=== PATIENT | female | born 1965 | race Caucasian/White ===

== ENCOUNTER 2017-11-02 15:49 | Emergency (ER) | payer OTHER ==
[~2017-11-02] VITALS: Ht 165.1 cm; Wt 105.1 kg
[~2017-11-02 15:49] MED LIST: ACCUPRIL20 MG PO; ALBUTEROL; ALBUTEROL17 GM IH; ALEVE220 M1 PO; ALPRAZOLAM0.25 MG; ALPRAZOLAM0.25 MG PO; ASPIR 8181 M1 PO; BENICAR40 MG PO; BUTRANS1 EAC1 TD; CALCIUM WITH V PO; CALCIUM500 M4 PO; CENTRUM SILVER1 EACH PO; CLEOCIN300 MG PO; CLONAZEPAM1 MG PO; CYMBALTA; CYMBALTA60 MG; CYMBALTA60 MG PO; Cymbalta PO; DIPHENOXYLATE-1 EAC1 PO; DITROPAN XL5 MG PO; ESTRADIOL; FLAX OIL1000 MG PO; FLEXERIL10 MG PO; GABAPENTIN; GLUCOSAMINE SULFATE; KEFLEX500 MG PO; LISINOPRIL; LOMOTIL TABLET1 EACH; LOMOTIL TABLET1 EACH PO; MACROBID100 MG PO; MACRODANTIN50 M1 PO; MELOXICAM15 MG PO; METAXALONE800 MG PO; MULTI VITAMIN1 EACH PO; OXYBUTYNIN CHLOR5 M1 PO; OXYCODONE HCL10 MG PO; OXYCODONE5 MG PO; PRILOSEC40 MG PO; PROTONIX40 MG PO; PROVENTIL17 GM; RECLAST5 MG/100 M; SEROQUEL100 MG PO; SKELAXIN400 M1 PO; SYMBICORT; SYMBICORT60 INHALAT; SYMBICORT60 INHALAT IH; SYNTHROID100 MCG PO; Symbicort 160-4.5 mc IH; TRAMADOL HCL50 MG PO; TRICOR48 MG PO; VENTOLIN HFA18 GM IH; VICODIN HP 10-1 EACH PO; VICODIN,LORT1 TABLET PO; VITAMIN D; VITAMIN D-3 401 EACH PO; VITAMIN D1000 UNIT PO; VITAMIN D3400 UNI1 PO; VOLTAREN75 MG PO; XANAX0.125 MG PO; Xanax PO; ZOLPIDEM; Zestril,Prinivil PO; [UNRECOGNIZED DRUG - OTHER]
[2017-11-02 17:04] LABS: HEMATOCRIT 40.3 % (36.0-46.0); HEMOGLOBIN 13.3 G/DL (11.9-15.5); MCH 31.2 PG (29.0-34.0); MCV 94.6 FL (83-99); PLATELET COUNT 252 K/uL (156-360); RBC DIS.WIDTH-CV 13.8 % (11.8-14.6); RBC DIS.WIDTH-SD 47.4 % (39-53); RED BLOOD COUNT 4.26 M/uL (3.80-5.20); WHITE BLOOD COUNT 3.6 K/uL (4.1-10.2)
[2017-11-02 17:15] LABS: CHLORIDE 102 mEq/L (99-109)
[2017-11-02 17:16] LABS: POTASSIUM 4.1 mEq/L (3.7-5.4); SODIUM 136 mEq/L (136-147)
[2017-11-02 17:17] LABS: GLUCOSE 96 mg/dL (70-99)
[2017-11-02 17:21] LABS: CREATININE 0.8 mg/dL (0.6-1.3); GFR ESTIMATE (CALCULATED) > 59 mL/min/
[2017-11-02 17:22] LABS: UREA NITROGEN (BUN) 9 mg/dL (9-23)
[2017-11-02 17:25] LABS: TROP-I INTERPRETATION NEGATIVE; TROPONIN-I < 0.01 ng/mL (0.0-0.30)
[2017-11-02 20:20] VITALS: BP 128/78
== END 2017-11-02 20:35 | disposition home or self-care (01) ==
LOC: EME 15:49
DX: J11.1 Influenza due to unidentified influenza virus with other respiratory manifestations (principal); R11.0 Nausea; J44.9 Chronic obstructive pulmonary disease, unspecified; I10 Essential (primary) hypertension; Z90.710 Acquired absence of both cervix and uterus; Z79.82 Long term (current) use of aspirin
CPT/HCPCS: 71046; 80048; 84484; 85027; 93005; 99281; 99285; J1200; J1885; J7030